=== PATIENT | female | born 1955 | race Caucasian/White ===

== ENCOUNTER 2016-04-27 08:14 | Emergency (ER) | payer OTHER ==
--- NOTE | 2016-04-27 09:59 | ED NURSING NOTES ---
Clinical Report - Nurses [facility] [place] [address] 04/27/2016 8:17 [id number] TRI[facility] Triage time 08:Apr 27 2016. Acuity: LEVEL 5. Chief Complaint: ABDOMINAL PAIN, NAUSEA and VOMITING. 08:31 04/27/16. SEPSIS SCREEN: Sepsis Screen. Negative (no infection suspected/documented). ENZO COMA SCORE: [place] Coma Scale: 15- eyes open spontaneously (4); best verbal response- oriented x 4 (5); best motor response- obeys commands (6). --08:31 Anel Miner R.N. 08:23 04/27/16. BP: 130/80 (regular adult cuff) taken on the left arm, while sitting. HR: 110. RR: 18. O2 saturation: 98% on room air. Temp: 98.5 F (oral). Pain level now: 04/13. --08:31 Anel Miner R.N. Weight: 80.7 kg stated. Height/Length: 64 inches Per Patient. BMI: 30.6. --08:26 Anel Miner R.N. Medications Effexor XR Oral 125. --08:25 Anel Miner R.N. Allergies Bactrim. Erythromycin. Penicillin. --08:25 Anel Miner R.N. History Arrived by private vehicle. Historian: patient. Primary physician (DAVID JOY). This started today. Onset. (Started at 1AM this morning). She has had nausea and vomiting. She has had sharp abdominal pain (Left sided abd pain). The pain is described as located in the LUQ. Treatment ENVIRONMENTAL HEALTH AND SAFETY INTERN: None. SOCIAL HX: Never smoker. Occasional alcohol use; consumes wine by the glass. No drug use. She has had contact with a sick individual. (Niece). ABUSE ASSESSMENT: No report of abuse. --08:31 Anel Miner R.N. PROBLEMS: Diarrhea. Chest Pain. Syncope. Hyperlipidemia. Pulmonary Nodule. Immunizations. Stage 3 renal failure. Depression. Tachycardia. Renal cancer. --08:25 Anel Miner R.N. ADDITIONAL SURGERIES: Hysterectomy. Nephrectomy. Oophorectomy. Rotator Cuff Surgery. --08:25 Anel Miner R.N. Interventions ID band on patient. To treatment room. --08:31 Anel Miner R.N. PHYSICAL ASSESSMENT 08:31 04/27/16. Ambulatory to room. GENERAL / NEURO / PSYCH: Alert. Oriented X 4. Appears in no acute distress. RESPIRATORY: Respirations not labored. CVS: Capillary refill less than 2 seconds. GI / : Bowel sounds within normal limits. SKIN: Skin is warm. --08:31 Anel Miner R.N. NURSING PROGRESS NOTES 08:32 04/27/16. Head of bed elevated. Reassurance given. Two patient identifiers checked. Call light placed in reach. Side rails up x 1. Bed placed in lowest position. Brakes of bed on. Patient ready for evaluation- chart flagged and ED physician notified. --08:32 Anel Miner R.N. 08:45 04/27/2016 Site #1 started via IV in the right antecubital space with an 20g angiocath; one attempt. Blood drawn: rainbow set. Saline lock flushed with 10 mL saline. --08:50 Anel Miner R.N. 08:45 04/27/2016 Started bag #1 1000 mL IV Fluids IV NS (Saline); at 1000 mL/hr over 1 hour(s) via site #1 via dial-a-flow. Allergies verified and confirmed 5 rights. IV patency established. IV site checked: no pain, redness, or swelling. IV flushed thoroughly pre- and post-medication administration. --08:50 Anel Miner R.N. 08:58 04/27/2016 Zofran (Ondansetron HCl) IVP 4 mg given over 1 minute(s) via site #1. Allergies verified and confirmed 5 rights. IV patency established. IV site checked: no pain, redness, or swelling. IV flushed thoroughly pre- and post-medication administration. IVP given by RN. --08:58 Anel Miner R.N. 09:21 04/27/2016 Zofran IVP Response: no adverse reaction pain is improving. Symptoms have improved the patient feels better. --09:21 Anel Miner R.N. ( Pt reports she feels better on Zofran, Ready to go home.). --09:32 Graciela Huffman. DISPOSITION / DISCHARGE 10:08 04/27/2016 Site #1 removed upon discharge. Bandaid applied. --10:08 Anel Miner R.N. 10:07 04/27/16. BP: 141/90. HR: 72 (regular). RR: 16 (regular). O2 saturation: 100% on room air. Temp: 98.4 F (oral). Pain level now: 04/13. --10:12 Anel Miner R.N. 10:11 04/27/2016 IV Fluids IV NS Discontinued: bag #1 completed upon discharge. Total amount infused: 1000 mL. IV patency established. IV site checked: no pain, redness, or swelling. IV flushed thoroughly. --10:21 Anel Miner R.N. 10:12 04/27/16. Departure time: 10:12 Apr 27 2016. Condition at departure: improved. No learning barriers present. Discharge instructions provided and reviewed with the patient. Reviewed medication(s) side effects and precautions information. Prescription(s) given to the patient. Work note given. Patient verbalized understanding. Written instructions provided in Pal[place]. The patient was discharged by the physician. She was discharged home. She left the Emergency Department ambulatory and via private vehicle. Patient driving. --10:12 Anel Miner R.N. Locked/Released at 05/01/2016 8:56 by Marely Sahni R.N.
--- NOTE | 2016-04-27 09:59 | ED NURSING NOTES ---
Clinical Report - Nurses [facility] [place] [address] 04/27/2016 8:17 [id number] TRI[facility] Triage time 08:Apr 27 2016. Acuity: LEVEL 5. Chief Complaint: ABDOMINAL PAIN, NAUSEA and VOMITING. 08:31 04/27/16. SEPSIS SCREEN: Sepsis Screen. Negative (no infection suspected/documented). ENZO COMA SCORE: [place] Coma Scale: 15- eyes open spontaneously (4); best verbal response- oriented x 4 (5); best motor response- obeys commands (6). --08:31 Anel Miner R.N. 08:23 04/27/16. BP: 130/80 (regular adult cuff) taken on the left arm, while sitting. HR: 110. RR: 18. O2 saturation: 98% on room air. Temp: 98.5 F (oral). Pain level now: 04/13. --08:31 Anel Miner R.N. Weight: 80.7 kg stated. Height/Length: 64 inches Per Patient. BMI: 30.6. --08:26 Anel Miner R.N. Medications Effexor XR Oral 125. --08:25 Anel Miner R.N. Allergies Bactrim. Erythromycin. Penicillin. --08:25 Anel Miner R.N. History Arrived by private vehicle. Historian: patient. Primary physician (DAVID JOY). This started today. Onset. (Started at 1AM this morning). She has had nausea and vomiting. She has had sharp abdominal pain (Left sided abd pain). The pain is described as located in the LUQ. Treatment DIRECTOR COUNSELING BUREAU: None. SOCIAL HX: Never smoker. Occasional alcohol use; consumes wine by the glass. No drug use. She has had contact with a sick individual. (Niece). ABUSE ASSESSMENT: No report of abuse. --08:31 Anel Miner R.N. PROBLEMS: Diarrhea. Chest Pain. Syncope. Hyperlipidemia. Pulmonary Nodule. Immunizations. Stage 3 renal failure. Depression. Tachycardia. Renal cancer. --08:25 Anel Miner R.N. ADDITIONAL SURGERIES: Hysterectomy. Nephrectomy. Oophorectomy. Rotator Cuff Surgery. --08:25 Anel Miner R.N. Interventions ID band on patient. To treatment room. --08:31 Anel Miner R.N. PHYSICAL ASSESSMENT 08:31 04/27/16. Ambulatory to room. GENERAL / NEURO / PSYCH: Alert. Oriented X 4. Appears in no acute distress. RESPIRATORY: Respirations not labored. CVS: Capillary refill less than 2 seconds. GI / : Bowel sounds within normal limits. SKIN: Skin is warm. --08:31 Anel Miner R.N. NURSING PROGRESS NOTES 08:32 04/27/16. Head of bed elevated. Reassurance given. Two patient identifiers checked. Call light placed in reach. Side rails up x 1. Bed placed in lowest position. Brakes of bed on. Patient ready for evaluation- chart flagged and ED physician notified. --08:32 Anel Miner R.N. 08:45 04/27/2016 Site #1 started via IV in the right antecubital space with an 20g angiocath; one attempt. Blood drawn: rainbow set. Saline lock flushed with 10 mL saline. --08:50 Anel Miner R.N. 08:45 04/27/2016 Started bag #1 1000 mL IV Fluids IV NS (Saline); at 1000 mL/hr over 1 hour(s) via site #1 via dial-a-flow. Allergies verified and confirmed 5 rights. IV patency established. IV site checked: no pain, redness, or swelling. IV flushed thoroughly pre- and post-medication administration. --08:50 Anel Miner R.N. 08:58 04/27/2016 Zofran (Ondansetron HCl) IVP 4 mg given over 1 minute(s) via site #1. Allergies verified and confirmed 5 rights. IV patency established. IV site checked: no pain, redness, or swelling. IV flushed thoroughly pre- and post-medication administration. IVP given by RN. --08:58 Anel Miner R.N. 09:21 04/27/2016 Zofran IVP Response: no adverse reaction pain is improving. Symptoms have improved the patient feels better. --09:21 Anel Miner R.N. ( Pt reports she feels better on Zofran, Ready to go home.). --09:32 Graciela Huffman. DISPOSITION / DISCHARGE 10:08 04/27/2016 Site #1 removed upon discharge. Bandaid applied. --10:08 Anel Miner R.N. 10:07 04/27/16. BP: 141/90. HR: 72 (regular). RR: 16 (regular). O2 saturation: 100% on room air. Temp: 98.4 F (oral). Pain level now: 04/13. --10:12 Anel Miner R.N. 10:11 04/27/2016 IV Fluids IV NS Discontinued: bag #1 completed upon discharge. Total amount infused: 1000 mL. IV patency established. IV site checked: no pain, redness, or swelling. IV flushed thoroughly. --10:21 Anel Miner R.N. 10:12 04/27/16. Departure time: 10:12 Apr 27 2016. Condition at departure: improved. No learning barriers present. Discharge instructions provided and reviewed with the patient. Reviewed medication(s) side effects and precautions information. Prescription(s) given to the patient. Work note given. Patient verbalized understanding. Written instructions provided in [place]ak. The patient was discharged by the physician. She was discharged home. She left the Emergency Department ambulatory and via private vehicle. Patient driving. --10:12 Anel Miner R.N. Locked/Released at 05/01/2016 8:56 by Marely Sahni R.N.
--- NOTE | 2016-04-27 09:59 | ED CLINICAL REPORT ---
Clinical Report - Physicians/Mid Levels [facility] [address] [place] [address] 04/27/2016 8:17 Patient: NEGRITA PERALTA Time Seen: 08:36. Arrived- By private vehicle. Historian- patient. CPT: ER phys charges level 4 (#[id number]). HISTORY OF PRESENT ILLNESS Chief Complaint: VOMITING. This started today at about 1:30 AM and is still present. It was abrupt in onset and has been intermittent and waxing/waning. No recent travel. She has had nausea, vomiting and mild, sharp abdominal pain. The pain is described as located in the LUQ. No diarrhea, black stools or bloody stools. Has not recently been camping or on antibiotics. Possible bad food exposure. She has had contact with a sick family member. (her niece had similar symptoms 3 days ago). They have had similar symptoms. Last bowel movement: yesterday. The illness is described as moderate. Similar symptoms previously: None. Recent medical care: Not recently seen/assessed. REVIEW OF SYSTEMS No cough, skin rash, jaundice, chills or fever. No sore throat, calf pain, chest pain, cough or difficulty breathing. No pedal edema, black stools, bloody stools, urinary problems or back pain. No dizziness, fainting episodes, weakness, diabetic symptoms or easy bruising. No difficulty with urination. The patient has experienced sweats and had palpitations. No difficulty walking. All systems otherwise negative, except as recorded above. PAST HISTORY PCP Mehrdad Cote. Problems: Diverticulitis. Sick Contact. Diarrhea. Chest Pain. Syncope. Hyperlipidemia. Pulmonary Nodule. Stage 3 renal failure. Depression. Tachycardia. Renal cancer. Additional Surgeries: Hysterectomy. Nephrectomy. Oophorectomy. Rotator Cuff Surgery. Medications: Effexor XR Oral 125. Allergies: Bactrim. CONTRAST DYE. Erythromycin. Penicillin. SOCIAL HISTORY Never smoker. Occasional alcohol use. No drug use. Residence: [place]. FAMILY HISTORY Diabetes in first-degree relative (father); hypertension in first-degree relative (father); premature onset heart disease in first-degree relative (father); cancer in first-degree relative (father). ADDITIONAL NOTES The nursing notes have been reviewed. PHYSICAL EXAM Vital Signs: 04/27/2016 08:23 BP: 130/80. HR: 110. RR: 18. O2 saturation: 98%. Temp: 98.5 F. Pain level now: 04/13. Have been reviewed. Appearance: Alert. Eyes: Pupils equal, round and reactive to light. ENT: Pharynx normal. Neck: Normal inspection. Neck supple. CVS: Tachycardia. Heart sounds normal. Respiratory: No respiratory distress. Breath sounds normal. Abdomen: Soft. Tenderness in the left upper quadrant and left side of the abdomen. Abnormal bowel sounds: hyperactive. Back: Normal inspection. No CVA tenderness. Skin: Skin warm and dry. Normal skin color. Normal skin turgor. Extremities: Extremities exhibit normal ROM. No calf tenderness. No lower extremity edema. Neuro: Oriented X 3. No motor deficit. No sensory deficit. Reflexes normal. LABS, X-RAYS, AND EKG Laboratory Tests: UA-Culture if indicated: (SANKET: 04/27/2016 08:50) ( [facility] [place] 09:19) Final results Test Result Flag Units (Reference) URINE COLOR YELLOW URINE APPEARANCE CLEAR URINE GLUCOSE NEGATIVE (NEGATIVE) URINE BILIRUBIN NEGATIVE (NEGATIVE) URINE KETONE NEGATIVE (NEGATIVE) URINE SPECIFIC GRAVITY <= 1.005 L (1.010-1.030) URINE PH 5.0 (5.0-8.0) URINE PROTEIN NEGATIVE (NEGATIVE) URINE UROBILINOGEN 0.2 EU/dL (0.2-1.0) URINE NITRITE NEGATIVE (NEGATIVE) URINE BLOOD NEGATIVE (NEGATIVE) URINE LEUK ESTERASE NEGATIVE (NEGATIVE) URINE RBC NONE SEEN rbc/hpf (0-1) URINE WBC NONE SEEN wbc/hpf (0-1) URINE EPITHELIAL CELLS 0-1 EPI/hpf (0-5) URINE BACTERIA NONE SEEN (NONE SEEN) URINE COMMENT CULT NOT INDICATED URINE CULTURES ARE SET-UP BASED ON THE FOLLOWING CRITERIA:POSITIVE NITRITEPOSITIVE LEUKOCYTE ESTERASEGREATER THAN 10 WHITE BLOOD CELLSMODERATE (2+) OR GREATER BACTERIA CBC w Diff: (SANKET: 04/27/2016 08:50) ( [facility] [place] 04/27/2016 09:12) Final results Test Result Flag Units (Reference) WHITE BLOOD COUNT 7.4 K/uL (4.5-11.5) RED BLOOD COUNT 5.06 M/uL (4.00-5.20) HEMOGLOBIN 15.8 gm/dL (12.0-16.0) HEMATOCRIT 47.1 H % (36.0-46.0) MEAN CELL VOLUME 93 fL (80-100) MEAN CORPUSCULAR HGB 31 pg (26-34) MEAN CORPUSCULAR HGB CONC 34 g/dL (31-37) RED CELL DISTRIBUTION WIDTH 12.9 % (11.6-14.8) PLATELET COUNT 384 K/uL (150-400) NEUTROPHIL % 79.7 H % (50-75) LYMPH % 12.8 L % (25-40) MONO % 6.1 % (3-14) EOSINOPHIL % 0.9 % (0-4) BASOPHIL % 0.5 % (0-2) CMP: (SANKET: 04/27/2016 08:50) ( MsgRcvd 04/27/2016 09:29) Final results Test Result Flag Units (Reference) GLUCOSE 162 H mg/dL (70-110) BUN 37 H mg/dL (7-18) CREATININE 1.1 mg/dL (0.6-1.3) Estimated GFR 54.03 mL/min Estimated GFR- >60 mL/min Note: Persistent reduction over 3 months in eGFR<60 mL/min/1.73 m2 defines CKD. Patients with eGFR values>=60 mL/min/1.73 m2 may also have CKD if evidence ofpersistent proteinuria. Additional information may be foundat www.kidney.org. SODIUM 141 mmol/L (136-145) POTASSIUM 4.0 mmol/L (3.5-5.1) CHLORIDE 104 mmol/L (98-107) CARBON DIOXIDE 24 mmol/L (21-32) CALCIUM 9.4 mg/dL (8.5-10.1) TOTAL PROTEIN 8.2 g/dL (6.4-8.2) ALBUMIN 3.8 g/dL (3.3-5.0) BILIRUBIN, TOTAL 0.4 mg/dL (0.0-1.0) ALKALINE PHOSPHATASE 102 U/L (46-116) AST (SGOT) 21 U/L (15-37) ALT (SGPT) 39 U/L (12-78) LIPASE 237 U/L (73-393) AMYLASE 45 U/L (25-115) . PROGRESS AND PROCEDURES Course of Care: IV NS 1 liter Zofran 4 mg IV Patient is stable. Physical exam findings are improved. Symptoms much better. Patient/family counseled. Disposition: Discharged. Condition: stable and improved. CLINICAL IMPRESSION Acute viral gastroenteritis. Pre-renal azotemia. INSTRUCTIONS No strenuous activity. Rest. Do not work for two days until better. Take clear liquids only (frequent sips) for the next 24 hours until better. Advance diet as tolerated. Warnings: Further evaluation is necessary. GENERAL WARNINGS: Return or contact your physician immediately if your condition worsens or changes unexpectedly, if not improving as expected, or if other problems arise. Your Current Medications: CONTINUE TAKING THE FOLLOWING MEDICATIONS: Effexor XR Oral : 125. Prescription Medications: Zofran (orally disintegrating tablets) 4 mg: take 1 orally every 4 hours as needed for nausea. Dispense fifteen (15). No refill. Substitution is permissible. Follow-up: Follow up with your doctor in three days if not better. Understanding of the discharge instructions verbalized by patient. (Electronically signed by Arnoldo Hull MD 04/27/2016 13:20)
--- NOTE | 2016-04-27 09:59 | ED CLINICAL REPORT ---
Clinical Report - Physicians/Mid Levels [facility] [address] [place] [address] 04/27/2016 8:17 Patient: NEGRITA PERALTA Time Seen: 08:36. Arrived- By private vehicle. Historian- patient. CPT: ER phys charges level 4 (#[id number]). HISTORY OF PRESENT ILLNESS Chief Complaint: VOMITING. This started today at about 1:30 AM and is still present. It was abrupt in onset and has been intermittent and waxing/waning. No recent travel. She has had nausea, vomiting and mild, sharp abdominal pain. The pain is described as located in the LUQ. No diarrhea, black stools or bloody stools. Has not recently been camping or on antibiotics. Possible bad food exposure. She has had contact with a sick family member. (her niece had similar symptoms 3 days ago). They have had similar symptoms. Last bowel movement: yesterday. The illness is described as moderate. Similar symptoms previously: None. Recent medical care: Not recently seen/assessed. REVIEW OF SYSTEMS No cough, skin rash, jaundice, chills or fever. No sore throat, calf pain, chest pain, cough or difficulty breathing. No pedal edema, black stools, bloody stools, urinary problems or back pain. No dizziness, fainting episodes, weakness, diabetic symptoms or easy bruising. No difficulty with urination. The patient has experienced sweats and had palpitations. No difficulty walking. All systems otherwise negative, except as recorded above. PAST HISTORY PCP Mehrdad Cote. Problems: Diverticulitis. Sick Contact. Diarrhea. Chest Pain. Syncope. Hyperlipidemia. Pulmonary Nodule. Stage 3 renal failure. Depression. Tachycardia. Renal cancer. Additional Surgeries: Hysterectomy. Nephrectomy. Oophorectomy. Rotator Cuff Surgery. Medications: Effexor XR Oral 125. Allergies: Bactrim. CONTRAST DYE. Erythromycin. Penicillin. SOCIAL HISTORY Never smoker. Occasional alcohol use. No drug use. Residence: [place]. FAMILY HISTORY Diabetes in first-degree relative (father); hypertension in first-degree relative (father); premature onset heart disease in first-degree relative (father); cancer in first-degree relative (father). ADDITIONAL NOTES The nursing notes have been reviewed. PHYSICAL EXAM Vital Signs: 04/27/2016 08:23 BP: 130/80. HR: 110. RR: 18. O2 saturation: 98%. Temp: 98.5 F. Pain level now: 04/13. Have been reviewed. Appearance: Alert. Eyes: Pupils equal, round and reactive to light. ENT: Pharynx normal. Neck: Normal inspection. Neck supple. CVS: Tachycardia. Heart sounds normal. Respiratory: No respiratory distress. Breath sounds normal. Abdomen: Soft. Tenderness in the left upper quadrant and left side of the abdomen. Abnormal bowel sounds: hyperactive. Back: Normal inspection. No CVA tenderness. Skin: Skin warm and dry. Normal skin color. Normal skin turgor. Extremities: Extremities exhibit normal ROM. No calf tenderness. No lower extremity edema. Neuro: Oriented X 3. No motor deficit. No sensory deficit. Reflexes normal. LABS, X-RAYS, AND EKG Laboratory Tests: UA-Culture if indicated: (SANKET: 04/27/2016 08:50) ( [facility] Final results Test Result Flag Units (Reference) URINE COLOR YELLOW URINE APPEARANCE CLEAR URINE GLUCOSE NEGATIVE (NEGATIVE) URINE BILIRUBIN NEGATIVE (NEGATIVE) URINE KETONE NEGATIVE (NEGATIVE) URINE SPECIFIC GRAVITY <= 1.005 L (1.010-1.030) URINE PH 5.0 (5.0-8.0) URINE PROTEIN NEGATIVE (NEGATIVE) URINE UROBILINOGEN 0.2 EU/dL (0.2-1.0) URINE NITRITE NEGATIVE (NEGATIVE) URINE BLOOD NEGATIVE (NEGATIVE) URINE LEUK ESTERASE NEGATIVE (NEGATIVE) URINE RBC NONE SEEN rbc/hpf (0-1) URINE WBC NONE SEEN wbc/hpf (0-1) URINE EPITHELIAL CELLS 0-1 EPI/hpf (0-5) URINE BACTERIA NONE SEEN (NONE SEEN) URINE COMMENT CULT NOT INDICATED URINE CULTURES ARE SET-UP BASED ON THE FOLLOWING CRITERIA:POSITIVE NITRITEPOSITIVE LEUKOCYTE ESTERASEGREATER THAN 10 WHITE BLOOD CELLSMODERATE (2+) OR GREATER BACTERIA CBC w Diff: (SANKET: 04/27/2016 08:50) ( [facility] [place] 09:12) Final results Test Result Flag Units (Reference) WHITE BLOOD COUNT 7.4 K/uL (4.5-11.5) RED BLOOD COUNT 5.06 M/uL (4.00-5.20) HEMOGLOBIN 15.8 gm/dL (12.0-16.0) HEMATOCRIT 47.1 H % (36.0-46.0) MEAN CELL VOLUME 93 fL (80-100) MEAN CORPUSCULAR HGB 31 pg (26-34) MEAN CORPUSCULAR HGB CONC 34 g/dL (31-37) RED CELL DISTRIBUTION WIDTH 12.9 % (11.6-14.8) PLATELET COUNT 384 K/uL (150-400) NEUTROPHIL % 79.7 H % (50-75) LYMPH % 12.8 L % (25-40) MONO % 6.1 % (3-14) EOSINOPHIL % 0.9 % (0-4) BASOPHIL % 0.5 % (0-2) CMP: (SANKET: 04/27/2016 08:50) ( MsgRcvd 04/27/2016 09:29) Final results Test Result Flag Units (Reference) GLUCOSE 162 H mg/dL (70-110) BUN 37 H mg/dL (7-18) CREATININE 1.1 mg/dL (0.6-1.3) Estimated GFR 54.03 mL/min Estimated GFR- >60 mL/min Note: Persistent reduction over 3 months in eGFR<60 mL/min/1.73 m2 defines CKD. Patients with eGFR values>=60 mL/min/1.73 m2 may also have CKD if evidence ofpersistent proteinuria. Additional information may be foundat www.kidney.org. SODIUM 141 mmol/L (136-145) POTASSIUM 4.0 mmol/L (3.5-5.1) CHLORIDE 104 mmol/L (98-107) CARBON DIOXIDE 24 mmol/L (21-32) CALCIUM 9.4 mg/dL (8.5-10.1) TOTAL PROTEIN 8.2 g/dL (6.4-8.2) ALBUMIN 3.8 g/dL (3.3-5.0) BILIRUBIN, TOTAL 0.4 mg/dL (0.0-1.0) ALKALINE PHOSPHATASE 102 U/L (46-116) AST (SGOT) 21 U/L (15-37) ALT (SGPT) 39 U/L (12-78) LIPASE 237 U/L (73-393) AMYLASE 45 U/L (25-115) . PROGRESS AND PROCEDURES Course of Care: IV NS 1 liter Zofran 4 mg IV Patient is stable. Physical exam findings are improved. Symptoms much better. Patient/family counseled. Disposition: Discharged. Condition: stable and improved. CLINICAL IMPRESSION Acute viral gastroenteritis. Pre-renal azotemia. INSTRUCTIONS No strenuous activity. Rest. Do not work for two days until better. Take clear liquids only (frequent sips) for the next 24 hours until better. Advance diet as tolerated. Warnings: Further evaluation is necessary. GENERAL WARNINGS: Return or contact your physician immediately if your condition worsens or changes unexpectedly, if not improving as expected, or if other problems arise. Your Current Medications: CONTINUE TAKING THE FOLLOWING MEDICATIONS: Effexor XR Oral : 125. Prescription Medications: Zofran (orally disintegrating tablets) 4 mg: take 1 orally every 4 hours as needed for nausea. Dispense fifteen (15). No refill. Substitution is permissible. Follow-up: Follow up with your doctor in three days if not better. Understanding of the discharge instructions verbalized by patient. (Electronically signed by Anroldo Hull MD 04/27/2016 13:20)
--- NOTE | 2016-04-27 09:59 | ED ORDER SUMMARY ---
..... Patient: NEGRITA PERALTA OrderSheet [facility] VisitID: [id number] [address] [place] [address] 60y, F Registration Date/Time: 04/27/2016 ORDER SHEET Weight: 80.7 kg (stated) Allergies: Bactrim, Erythromycin, Penicillin, CONTRAST DYE GENERAL ORDERS: CBC w Diff Urgent (08:35 04/27/2016 Stefany HARTMAN) (Ack 8:43 RKaruga) (8:50 JSanders R.N.) CMP Urgent (08:35 04/27/2016 Stefany HARTMAN) (Ack 8:43 Steffany) (8:50 JSanders R.N.) UA-Culture if indicated Urgent (08:04/27/2016 Stefany HARTMAN) (Ack 8:43 RKreed) (8:58 JSanders R.N.) Amylase Urgent (08:04/27/2016 Stefany HARTMAN) (Ack 8:43 RKstormyuga) (8:50 JSanders R.N.) Lipase Urgent (08:35 04/27/2016 Stefany HARTMAN) (Ack 8:43 [place]) (8:50 JSanders R.N.) MEDICATION ORDERS: IV FLUIDS: IV NS : initial bolus 500 mL (1000 mL/hr), then 125 mL/hr for 4h (NOW); Urgent (08:34 04/27/2016 Stefany HARTMAN) (8:50 JSanders R.N.) Zofran IV 4 mg (NOW) (08:51 04/27/2016 JSanders R.N. verbal order read back to Stefany HARTMAN) (8:58 JSanders R.N.) ORDER SHEET NOTES: [Electronically signed by Arnoldo Hull MD (13:20 04/27/2016)] [Electronically signed by Marely Sahni R.N. (08:56 05/01/2016)] [Electronically locked/signed by Marely Sahni R.N. (08:56 05/01/2016)]
--- NOTE | 2016-04-27 09:59 | ED ORDER SUMMARY ---
..... Patient: NEGRITA PERALTA OrderSheet [facility] VisitID: [id number] [address] [place] [address] 60y, F Registration Date/Time: 04/27/2016 ORDER SHEET Weight: 80.7 kg (stated) Allergies: Bactrim, Erythromycin, Penicillin, CONTRAST DYE GENERAL ORDERS: CBC w Diff Urgent (08:35 04/27/2016 Stefany HARTMAN) (Ack 8:43 RKaruga) (8:50 JSanders R.N.) CMP Urgent (08:35 04/27/2016 Stefany HARTMAN) (Ack 8:43 Steffany) (8:50 JSanders R.N.) UA-Culture if indicated Urgent (08:04/27/2016 Stefany HARTMAN) (Ack 8:43 RKreed) (8:58 JSanders R.N.) Amylase Urgent (08:04/27/2016 Stefany HARTMAN) (Ack 8:43 RKstormyuga) (8:50 JSanders R.N.) Lipase Urgent (08:35 04/27/2016 Stefany HARTMAN) (Ack 8:43 [place]) (8:50 JSanders R.N.) MEDICATION ORDERS: IV FLUIDS: IV NS : initial bolus 500 mL (1000 mL/hr), then 125 mL/hr for 4h (NOW); Urgent (08:34 04/27/2016 Stefany HARTMAN) (8:50 JSanders R.N.) Zofran IV 4 mg (NOW) (08:51 04/27/2016 JSanders R.N. verbal order read back to Stefany HARTMAN) (8:58 JSanders R.N.) ORDER SHEET NOTES: [Electronically signed by Arnoldo Hull MD (13:20 04/27/2016)] [Electronically signed by Marely Sahni R.N. (08:56 05/01/2016)] [Electronically locked/signed by Marely Sahni R.N. (08:56 05/01/2016)]
--- NOTE | 2016-05-01 08:56 | ED MED RECONCILIATION SUMMARY ---
Patient: NEGRITA PERALTA Medication Reconciliation Report [facility] VisitID: [id number] [address] [place] [address] 60y, F Registration Date/Time: 04/27/2016 Weight: 80.7 kg Height/Length: 64 in. BMI: 30.6 ALLERGIES: Bactrim, CONTRAST DYE, Erythromycin, Penicillin The patient's Home Medications are listed below: CONTINUE TAKING THE FOLLOWING MEDICATIONS: Effexor XR Oral 125 The source(s) of the original Home Medication information: Not obtained. The following Medications were given to the patient in the Emergency Department: IV NS IV Fluids bolus 0, then 1000 mL/hr, administered: 04/27/2016 8:45:00 AM Zofran [IVP] IVP 4 mg, administered: 04/27/2016 8:58:00 AM The following Medications were prescribed to the patient: Zofran (orally disintegrating tablets) 4 mg: take 1 orally every 4 hours as needed for nausea. Dispense fifteen (15). No refill. Substitution is permissible. -- Arnoldo Hull MD
--- NOTE | 2016-05-01 08:56 | ED MAR SUMMARY ---
..... Medication Administration Record [facility] [address] [place] [address] Patient: NEGRITA PERALTA Visit ID: [id number] 60y, F Weight: 80.7 kg Height/Length: 64 in BMI: 30.6 ALLERGIES: Bactrim, Erythromycin, Penicillin, CONTRAST DYE Start 08:45 04/27/2016 Anel Miner R.N., Stop 10:11 04/27/2016 Anel Miner R.N. Medication Administered: IV NS (SALINE), Dose: IV Fluids over 1 hour(s), Rate: 1000 mL/hr, Dispensed: 1000 mL bag, Site: #1 right AC. Medication Ordered: IV NS : initial bolus 500 mL (1000 mL/hr), then 125 mL/hr for 4h (NOW); Urgent. Given 08:58 04/27/2016 Anel Miner R.N. Medication Administered: ZOFRAN [IVP] (ONDANSETRON HCL), Dose: 4 mg IVP over 1 minute(s), Site: #1 right AC. Medication Ordered: Zofran IV 4 mg (NOW).
--- NOTE | 2016-05-01 08:56 | ED DISCHARGE INSTRUCTIONS ---
Patient: NEGRITA PERALTA General Instructions [facility] VisitID: [id number] [place] [address] 60y, F Registration Date/Time: 04/27/2016 Acute viral gastroenteritis. Pre-renal azotemia. INSTRUCTIONS No strenuous activity. Rest. Do not work for two days until better. Take clear liquids only (frequent sips) for the next 24 hours until better. Advance diet as tolerated. Warnings: Further evaluation is necessary. GENERAL WARNINGS: Return or contact your physician immediately if your condition worsens or changes unexpectedly, if not improving as expected, or if other problems arise. Your Current Medications: CONTINUE TAKING THE FOLLOWING MEDICATIONS: Effexor XR Oral : 125. Prescription Medications: Zofran (orally disintegrating tablets) 4 mg: take 1 orally every 4 hours as needed for nausea. Dispense fifteen (15). No refill. Substitution is permissible. Follow-up: Follow up with your doctor in three days if not better. Understanding of the discharge instructions verbalized by patient. ADDITIONAL INFORMATION Viral Gastroenteritis (6Yr-Adult) Gastroenteritis is another name for thestomach flu.It is most often caused by a virus that affects the stomach and intestinal tract. Symptoms include stomach cramping and fever, vomiting and/or diarrhea, and can last from 2 to 7 days. The danger from repeated vomiting or diarrhea is dehydration. This is the loss of too much water and minerals from the body. When this occurs, body fluids must be replaced. Antibiotics are not effective for this illness, but simple home treatment will be helpful. Home Care If symptoms are severe, rest at home for the next 24 hours. Avoid tobacco, caffeine, and alcohol use, which can worsen symptoms. Acetaminophen (Tylenol) or ibuprofen (Motrin, Advil) may be usedfor fever or pain unless another medication was prescribed. NOTE: If you have chronic liver or kidney disease or ever had a stomach ulcer or GI bleeding, talk with your doctor before using these medicines. Aspirin should never be used in anyone under 18 years of age who is ill with a fever. It may cause severe liver damage. If medicines for diarrhea or vomiting were prescribed, be sure they are takenonly as directed. If vomiting, drink small amounts of clear fluids (such as water, sports drinks, clear sodas) at frequent intervals to prevent dehydration. Start with 1 to 2 tablespoons every 10 minutes. Once vomiting stops, follow these guidelines: During The First 12 To 24 Hours follow the diet below: Beverages: Sport drinks like Gatorade, soft drinks without caffeine; sully gamaliel, mineral water (plain or flavored), decaffeinated tea and coffee. Soups: Clear broth, consomm and bouillon Desserts: Plain gelatin (Jell-O), Popsicles and fruit juice bars. During The Next 24 Hours you may add the following to the above: Hot cereal, plain toast, bread, rolls, crackers Plain noodles, rice, mashed potatoes, chicken noodle or rice soup Unsweetened canned fruit (avoid pineapple), bananas Limit fat intake to less than 15 grams per day by avoiding margarine, butter, oils, mayonnaise, sauces, gravies, fried foods, peanut butter, meat, poultry, and fish. Limit fiber; avoid raw or cooked vegetables, fresh fruits (except bananas), and bran cereals. Limit caffeine and chocolate. Do not use spices or seasonings except salt. During The Next 24 Hours The patient can gradually resume a normal diet as symptoms lessen. Preventing Spread Hand washing with soap and water is the best way to prevent the spread of viruses. Caregivers should wash their hands before andafter touching the sick person. The sick person, as well as everyone in the family,should wash their hands after using the toilet and before meals. Clean the toilet after each use. People with diarrhea should not prepare food for others. If you are preparing your own foods, wash your hands before and after. Follow Up with your doctor as advised. Call your doctor if you are not improving over the next 2 to 3 days. If a stool (diarrhea) sample was taken, you may call in 2 days (or as directed) for the results. Get Prompt Medical Attention if any of the following occur: Increasing abdominal pain Continued vomiting (unable to keep liquids down) Frequent diarrhea (more than 5 times a day) Blood in vomit or stool (black or red color) Dark urine, reduced urine output, or extreme thirst Weakness, dizziness, fainting Drowsiness, confusion, stiff neck, or seizure Fever of 100.4F (38C) oral or higher, not better with fever medication New rash Food Poisoning Or Viral Gastroenteritis (6Yr-Adult) You have a stomach illness that is likely either food poisoning or viral gastroenteritis. Food poisoning occurs from1 to 24 hours after eating contaminated food and lasts up to 1 to 2 days. Viral gastroenteritis is commonly known as the stomach flu. It may last up to a week. Symptoms of both illnesses may include vomiting, diarrhea, fever, and stomach cramping. Antibiotics are not an effective treatment for either problem, but simple home treatment can give relief. Home Care: If symptoms are severe, rest at home for the next 24 hours. You may use acetaminophen (Tylenol) or ibuprofen (Motrin, Advil) to control fever, unless another medication was prescribed. [NOTE: If you have chronic liver or kidney disease or ever had a stomach ulcer or GI bleeding, talk with your doctor before using these medications. Do not give aspirin to anyone under 18 years of age who is ill with a fever.] Avoid tobacco and alcohol consumption. These may worsen your symptoms. If medicines for diarrhea or vomiting were prescribed, take these only as directed. Never take these without a healthcare providers approval. During the first12 to 24hours follow the diet below: BEVERAGES: Sport drinks like Gatorade, soft drinks without caffeine; sully gamaliel, mineral water (plain or flavored), decaffeinated tea and coffee. SOUPS: Clear broth, consomm and bouillon DESSERTS: Plain gelatin (Jell-O), popsicles and fruit juice bars. During the next 24 hours you may add the following to the above: Hot cereal, plain toast, bread, rolls, crackers Plain noodles, rice, mashed potatoes, chicken noodle or rice soup Unsweetened canned fruit (avoid pineapple), bananas Limit fat intake to less than 15 grams per day by avoiding margarine, butter, oils, mayonnaise, sauces, gravies, fried foods, peanut butter, meat, poultry, and fish. Limit fiber; avoid raw or cooked vegetables, fresh fruits (except bananas) and bran cereals. Limit caffeine and chocolate. No spices or seasonings except salt. Gradually resume a normal diet as you feel better and your symptoms lessen. Follow Up with your doctor as advised if you are not better in 2 days. If a stool (diarrhea) sample was taken, you may call in 2 days (or as directed) for the results. Get Prompt Medical Attention if any of the following occur: Increasing abdominal pain or constant lower right abdominal pain Continued vomiting (unable to keep liquids down) Frequent diarrhea (more than 5 times a day) Blood in vomit or stool (black or red color) Signs of dehydration: increased thirst, dark urine, reduced or no urine output, dry mouth and tongue, tireness or weakness, dizziness when standing, rapid breathinng New rash Fever of 100.4F (38C) oral or higher, not better with fever medication Clear Liquid Diet Clear liquids are any liquid that you can see through as well as those that are very easy to digest. This is used while the body is recovering from irritation or infection of the stomach or intestinal tract. It may also be used before special procedures or surgery. This diet is to be used no more than three days. You may include the following items. Adults Adults should drink a total of 23 quarts of liquid per day. It may be easier to drink small frequent servings rather than a few large ones. Liquids can include: Fruit juices.Strained orange juice or lemonade (no pulp), apple, grape and cranberry juice, clear fruit drinks, sports drinks Beverages.Sport drinks, sodas, mineral water (plain or flavored), tea, black coffee, liquid gelatin (add twice the recommended amount of water) Soups.Clear broth, consomm, bouillon Desserts.Plain gelatin, popsicles, fruit juice bars Children Over 2 years old The following liquids are acceptable for children over age 2: Fruit juices.Strained orange juice or lemonade (no pulp), apple, grape and cranberry juice, clear fruit drinks Beverages. Sports drinks, sodas, mineral water (plain or flavored), tea, liquid gelatin (add twice the recommended amount of water) Soups. Clear broth, consomm, bouillon Desserts. Plain gelatin, popsicles, fruit juice bars Children under 2 years old Oral rehydration fluids such are available at drug stores and most grocery stores without a prescription. Ondansetron Oral disintegrating tablet What is this medicine? ONDANSETRON (on KATHRYN se mame) is used to treat nausea and vomiting caused by chemotherapy. It is also used to prevent or treat nausea and vomiting after surgery. How should I use this medicine? These tablets are made to dissolve in the mouth. Do not try to push the tablet through the foil backing. With dry hands, peel away the foil backing and gently remove the tablet. Place the tablet in the mouth and allow it to dissolve, then swallow. While you may take these tablets with water, it is not necessary to do so. Talk to your research assistant member regarding the use of this medicine in children. Special care may be needed. What side effects may I notice from receiving this medicine? Side effects that you should report to your doctor or health memory care program director as soon as possible: allergic reactions like skin rash, itching or hives, swelling of the face, lips, or tongue breathing problems dizziness fast or irregular heartbeat feeling faint or lightheaded, falls fever and chills swelling of the hands and feet tightness in the chest Side effects that usually do not require medical attention (report to your doctor or health memory care program director if they continue or are bothersome): constipation or diarrhea headache What may interact with this medicine? Do not take this medicine with any of the following medications: -apomorphine -cisapride -dofetilide -dronedarone -pimozide -thioridazine -ziprasidone This medicine may also interact with the following medications: -carbamazepine -phenytoin -rifampicin -tramadol -other medicines that prolong the QT interval (cause an abnormal heart rhythm) What if I miss a dose? If you miss a dose, take it as soon as you can. If it is almost time for your next dose, take only that dose. Do not take double or extra doses. Where should I keep my medicine? Keep out of the reach of children. Store between 2 and 30 degrees C (36 and 86 degrees F). Throw away any unused medicine after the expiration date. What should I tell my health care provider before I take this medicine? They need to know if you have any of these conditions: heart disease history of irregular heartbeat liver disease low levels of magnesium or potassium in the blood an unusual or allergic reaction to ondansetron, granisetron, other medicines, foods, dyes, or preservatives or trying to get breast-feeding What should I watch for while using this medicine? Check with your doctor or health memory care program director as soon as you can if you have any sign of an allergic reaction. You have been given the following additional information: Gastroenteritis, Viral (6Y-Adult) Food Poisoning Or Gastroenteritis (6Y-Adult) Diet, Clear Liquid Ondansetron Oral disintegrating tablet No strenuous activity. Rest. Do not work for two days until better. (Electronically signed by Arnoldo Hull MD 04/27/2016 13:20)
--- NOTE | 2016-05-01 08:56 | ED MAR SUMMARY ---
..... Medication Administration Record [facility] [address] [place] [address] Patient: NEGRITA PERALTA Visit ID: [id number] 60y, F Weight: 80.7 kg Height/Length: 64 in BMI: 30.6 ALLERGIES: Bactrim, Erythromycin, Penicillin, CONTRAST DYE Start 08:45 04/27/2016 Anel Miner R.N., Stop 10:11 04/27/2016 Anel Miner R.N. Medication Administered: IV NS (SALINE), Dose: IV Fluids over 1 hour(s), Rate: 1000 mL/hr, Dispensed: 1000 mL bag, Site: #1 right AC. Medication Ordered: IV NS : initial bolus 500 mL (1000 mL/hr), then 125 mL/hr for 4h (NOW); Urgent. Given 08:58 04/27/2016 Anel Mienr R.N. Medication Administered: ZOFRAN [IVP] (ONDANSETRON HCL), Dose: 4 mg IVP over 1 minute(s), Site: #1 right AC. Medication Ordered: Zofran IV 4 mg (NOW).
--- NOTE | 2016-05-01 08:56 | ED MED RECONCILIATION SUMMARY ---
Patient: NEGRITA PERALTA Medication Reconciliation Report [facility] VisitID: [id number] [address] [place] [address] 60y, F Registration Date/Time: 04/27/2016 Weight: 80.7 kg Height/Length: 64 in. BMI: 30.6 ALLERGIES: Bactrim, CONTRAST DYE, Erythromycin, Penicillin The patient's Home Medications are listed below: CONTINUE TAKING THE FOLLOWING MEDICATIONS: Effexor XR Oral 125 The source(s) of the original Home Medication information: Not obtained. The following Medications were given to the patient in the Emergency Department: IV NS IV Fluids bolus 0, then 1000 mL/hr, administered: 04/27/2016 8:45:00 AM Zofran [IVP] IVP 4 mg, administered: 04/27/2016 8:58:00 AM The following Medications were prescribed to the patient: Zofran (orally disintegrating tablets) 4 mg: take 1 orally every 4 hours as needed for nausea. Dispense fifteen (15). No refill. Substitution is permissible. -- Arnoldo Hull MD
== END 2016-04-27 10:14 | disposition home or self-care (01) ==
LOC: ED SRH 08:14
DX: A08.4 Viral intestinal infection, unspecified (principal); R79.89 Other specified abnormal findings of blood chemistry; Z79.899 Other long term (current) drug therapy; Z88.0 Allergy status to penicillin; Z88.1 Allergy status to other antibiotic agents; Z91.041 Radiographic dye allergy status
CPT/HCPCS: 90004; 90100; 92235; 92530; 95059

== ENCOUNTER 2016-08-19 07:47 | Emergency (ER) | payer OTHER ==
--- NOTE | 2016-08-19 08:26 | ED CLINICAL REPORT ---
Clinical Report - Physicians/Mid Levels [facility] [address] [place] [address] 08/19/2016 7:48 Patient: NEGRITA PERALTA Time Seen: 08:13. Arrived- By private vehicle. Historian- patient. HISTORY OF PRESENT ILLNESS Chief Complaint: EYE IRRITATION. This started last night, involves the left eye, is characterized as moderate in severity and has been constant and is still present. The patient sustained injury. This occurred at home. She wears contact lenses (removing her contact, which she had slept in for about 30 min, she accidently scratched her left eye noting immediate discomfort). No suspected foreign body in eye or UV light exposure. Eye redness and irritation. No eye discharge, eyelid swelling, photophobia or loss of vision. REVIEW OF SYSTEMS No fever, sore throat or cough. PAST HISTORY See nurses notes. The patient wears contact lenses. PCP Mehrdad Cote. Problems: Diverticulitis. Sick Contact. Diarrhea. Chest Pain. Syncope. Hyperlipidemia. Pulmonary Nodule. Stage 3 renal failure. Depression. Tachycardia. Renal cancer. Surgeries: Hysterectomy. Nephrectomy. Oophorectomy. Rotator Cuff Surgery. No history of diabetes mellitus or glaucoma. Anxiety. Depression. Surgeries: Had hysterectomy. Medications: Effexor XR Oral. Allergies: Ambien. Bactrim. CONTRAST DYE. Erythromycin. Penicillin. SOCIAL HISTORY Never smoker. Occasional alcohol use. No drug use. ADDITIONAL NOTES The nursing notes have been reviewed. PHYSICAL EXAM Vital Signs: 08/19/2016 08:26 BP: 149/86. HR: 85. RR: 18. O2 saturation: 100%. Temp: 98.1 F. Appearance: Alert. Oriented X3. HEENT: Head appears normal to external inspection. Eyes: Left cornea examined with fluorescein stain. Eyelids appear normal to inspection. Pupils equal, round and reactive to light. Accommodation normal. EOMs intact. Periorbital areas appear normal to inspection. Anterior chambers clear. Anterior chambers of normal depth. Rt Eye: Right eye exam normal. Lt Eye: Injected conjunctiva. Scleral injury: mild swelling and small abrasion. No stye present. No foreign body under the eyelid. No corneal foreign body or fluorescein dye uptake. Neck: Neck supple. CVS: Normal heart rate and rhythm. Heart sounds normal. Respiratory: No respiratory distress. Breath sounds normal. Skin: No rash. Extremities: Extremities negative. Neuro: Oriented X 3. (normal gait). PROGRESS AND PROCEDURES Course of Care: Most c/w healing corneal and scleral abrasion. No corneal ulcer or penetrating globe injury. Patient/family counseled. Old ED records reviewed. Disposition: Discharged. Condition: stable. CLINICAL IMPRESSION Small corneal abrasion to the left eye due to contact lens (resolving). No foreign body or rust ring. Small scleral laceration of the left eye. No prolapse or loss of intraocular contents. INSTRUCTIONS Do not work today. Drink plenty of fluids. Warnings: Further evaluation is necessary. It is very important to follow up with a physician. CONTROLLED SUBSTANCE WARNINGS. GENERAL WARNINGS: Return or contact your physician immediately if your condition worsens or changes unexpectedly, if not improving as expected, or if other problems arise. Prescription Medications: Hydrocodone/APAP 5mg / 325mg: take 1-2 orally every 8 hours as needed for pain. Dispense ten (10). No refill. Ciprofloxacin ophthalmic solution: Instill 1 drop into affected eye every 2 hours while awake for 2 days then every 4 hours while awake for 5 days. Dispense five (5) mL. No refills. Follow-up with: Santos Madrigal MD, Ophthalmology, , [facility], [address] [place] [address]; Genia Xiong MD, Ophthalmology, [facility] [address] [address] Follow up tomorrow if not better. (Electronically signed by Jorge Deluna DO 08/20/2016 11:34)
--- NOTE | 2016-08-19 08:26 | ED CLINICAL REPORT ---
Clinical Report - Physicians/Mid Levels [facility] [address] [place] [address] 08/19/2016 7:48 Patient: NEGRITA PERALTA Time Seen: 08:13. Arrived- By private vehicle. Historian- patient. HISTORY OF PRESENT ILLNESS Chief Complaint: EYE IRRITATION. This started last night, involves the left eye, is characterized as moderate in severity and has been constant and is still present. The patient sustained injury. This occurred at home. She wears contact lenses (removing her contact, which she had slept in for about 30 min, she accidently scratched her left eye noting immediate discomfort). No suspected foreign body in eye or UV light exposure. Eye redness and irritation. No eye discharge, eyelid swelling, photophobia or loss of vision. REVIEW OF SYSTEMS No fever, sore throat or cough. PAST HISTORY See nurses notes. The patient wears contact lenses. PCP Mehrdad Cote. Problems: Diverticulitis. Sick Contact. Diarrhea. Chest Pain. Syncope. Hyperlipidemia. Pulmonary Nodule. Stage 3 renal failure. Depression. Tachycardia. Renal cancer. Surgeries: Hysterectomy. Nephrectomy. Oophorectomy. Rotator Cuff Surgery. No history of diabetes mellitus or glaucoma. Anxiety. Depression. Surgeries: Had hysterectomy. Medications: Effexor XR Oral. Allergies: Ambien. Bactrim. CONTRAST DYE. Erythromycin. Penicillin. SOCIAL HISTORY Never smoker. Occasional alcohol use. No drug use. ADDITIONAL NOTES The nursing notes have been reviewed. PHYSICAL EXAM Vital Signs: 08/19/2016 08:26 BP: 149/86. HR: 85. RR: 18. O2 saturation: 100%. Temp: 98.1 F. Appearance: Alert. Oriented X3. HEENT: Head appears normal to external inspection. Eyes: Left cornea examined with fluorescein stain. Eyelids appear normal to inspection. Pupils equal, round and reactive to light. Accommodation normal. EOMs intact. Periorbital areas appear normal to inspection. Anterior chambers clear. Anterior chambers of normal depth. Rt Eye: Right eye exam normal. Lt Eye: Injected conjunctiva. Scleral injury: mild swelling and small abrasion. No stye present. No foreign body under the eyelid. No corneal foreign body or fluorescein dye uptake. Neck: Neck supple. CVS: Normal heart rate and rhythm. Heart sounds normal. Respiratory: No respiratory distress. Breath sounds normal. Skin: No rash. Extremities: Extremities negative. Neuro: Oriented X 3. (normal gait). PROGRESS AND PROCEDURES Course of Care: Most c/w healing corneal and scleral abrasion. No corneal ulcer or penetrating globe injury. Patient/family counseled. Old ED records reviewed. Disposition: Discharged. Condition: stable. CLINICAL IMPRESSION Small corneal abrasion to the left eye due to contact lens (resolving). No foreign body or rust ring. Small scleral laceration of the left eye. No prolapse or loss of intraocular contents. INSTRUCTIONS Do not work today. Drink plenty of fluids. Warnings: Further evaluation is necessary. It is very important to follow up with a physician. CONTROLLED SUBSTANCE WARNINGS. GENERAL WARNINGS: Return or contact your physician immediately if your condition worsens or changes unexpectedly, if not improving as expected, or if other problems arise. Prescription Medications: Hydrocodone/APAP 5mg / 325mg: take 1-2 orally every 8 hours as needed for pain. Dispense ten (10). No refill. Ciprofloxacin ophthalmic solution: Instill 1 drop into affected eye every 2 hours while awake for 2 days then every 4 hours while awake for 5 days. Dispense five (5) mL. No refills. Follow-up with: Santos Madrigal MD, Ophthalmology, , [facility], [address] [place] [address]; Genia Xiong MD, Ophthalmology, [facility] [address] - [address] [address] Follow up tomorrow if not better. (Electronically signed by Jorge Deluna DO 08/20/2016 11:34)
--- NOTE | 2016-08-20 11:34 | ED NURSING NOTES ---
Clinical Report - Nurses [facility] [address] [place] [address] 08/19/2016 7:48 Patient: NEGRITA PERALTA TRIAGE Triage time 08:26. --08:26 Savanna Carmona R.N. Acuity: LEVEL 3. Chief Complaint: REDNESS and PAIN TO LEFT EYE. Alert. No acute distress. --08:31 Bettie Frias R.N. Weight: 79.3 kg stated. Height/Length: 64 inches Per Patient. BMI: 30. --08:30 Bettie Frias R.N. Medications Effexor XR Oral. --08:30 Bettie Frias R.N. Allergies Bactrim. CONTRAST DYE. Erythromycin. Penicillin. --08:30 Bettie Frias R.N. Ambien. --08:30 Bettie Frias R.N. Medication/allergy information source: the patient. --08:31 Bettie Frias R.N. History Arrived by private vehicle. Historian: patient. Unaccompanied. This started today. She may have sustained an injury. 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 PAST MEDICAL HX: The patient has had a hysterectomy. SOCIAL HX: Never smoker. Occasional alcohol use. No drug use. FALL RISK ASSESSMENT: Fall risk assessment completed. No fall risk identified. NUTRITIONAL RISK ASSESSMENT: The nutritional risk assessment revealed no deficiencies. FUNCTIONAL ASSESSMENT: Functional assessment: no impairments noted. LEARNING NEEDS ASSESSMENT: The learning needs assessment revealed no barriers. SKIN INTEGRITY ASSESSMENT: Skin integrity risk assessment completed. No skin integrity risk identified. --08:31 Bettie Frias R.N. PROBLEMS: Gastroenteritis. Diverticulitis. Sick Contact. Diarrhea. Chest Pain. Syncope. Hyperlipidemia. Pulmonary Nodule. Immunizations. Stage 3 renal failure. Depression. Tachycardia. Renal cancer. --08:30 Bettie Frias R.N. ADDITIONAL SURGERIES: Hysterectomy. Nephrectomy. Oophorectomy. Rotator Cuff Surgery. --08:30 Bettie Frias R.N. Assessment GENERAL / NEURO / PSYCH: Alert. Oriented X 4. Appears in no acute distress. Patient appears calm and cooperative. RESPIRATORY: Respirations not labored. CVS: Capillary refill less than 2 seconds. GI / : Abdomen soft and nontender. SKIN: Mucous membranes are pink. Skin is warm and dry. --08:31 Bettie Frias R.N. Interventions ID band on patient. To treatment room. --08:31 Bettie Frias R.N. NURSING PROGRESS NOTES 08:26 08/19/16. BP: 149/86. HR: 85. RR: 18. O2 saturation: 100%. Temp: 98.1 F. --08:27 Janae Walker. DISPOSITION / DISCHARGE 08:35. The patient was discharged by the physician. --15:47 Bethany Linares R.N. 08:26 08/19/16. BP: 149/86. HR: 85. RR: 18. O2 saturation: 100%. Temp: 98.1 F. --15:47 Bethany Linares R.N. Locked/Released at 08/19/2016 15:47 by Bethany Linares R.N.
--- NOTE | 2016-08-20 11:34 | ED DISCHARGE INSTRUCTIONS ---
Patient: NEGRITA PERALTA General Instructions [facility] VisitID: [id number] [address] [place] [id number] 60y, F Registration Date/Time: 08/19/2016 Small corneal abrasion to the left eye due to contact lens (resolving). No foreign body or rust ring. Small scleral laceration of the left eye. No prolapse or loss of intraocular contents. INSTRUCTIONS Do not work today. Drink plenty of fluids. Warnings: Further evaluation is necessary. It is very important to follow up with a physician. CONTROLLED SUBSTANCE WARNINGS. GENERAL WARNINGS: Return or contact your physician immediately if your condition worsens or changes unexpectedly, if not improving as expected, or if other problems arise. Prescription Medications: Hydrocodone/APAP 5mg / 325mg: take 1-2 orally every 8 hours as needed for pain. Dispense ten (10). No refill. Ciprofloxacin ophthalmic solution: Instill 1 drop into affected eye every 2 hours while awake for 2 days then every 4 hours while awake for 5 days. Dispense five (5) mL. No refills. Follow-up with: Santos Madrigal MD, Ophthalmology, , [facility], [address] [place] [address]; Genia Xiong MD, Ophthalmology, [facility], [address] [place] [address] - [address] [address] Follow up tomorrow if not better. ADDITIONAL INFORMATION Corneal Abrasion The cornea is the clear part in the front of the eye. This sensitive area is very painful when injured. There may be tearing and your vision may be blurry until healing occurs. You may be sensitive to light. This part of the body heals quickly. You can expect the pain to go away within 24-48 hours. If the abrasion is large or deep, your doctor may apply an eye patch, although this is not always done. An antibiotic ointment or eye drops may also be used to prevent infection. Numbing drops may be used to relieve the pain temporarily so that your eyes can be examined. However, these drops cannot be prescribed for home use because that would slow down the healing process. Also, if you cant feel your eye, there is a chance of accidentally injuring your eye further without knowing it. Home Care: A cold pack (ice in a plastic bag, wrapped in a towel) may be applied over the eye (or eyepatch) for 20 minutes at a time, to reduce pain. You may use acetaminophen (Tylenol) or ibuprofen (Motrin, Advil) to control pain, unless another pain medicine was prescribed. [NOTE: If you have chronic liver or kidney disease or ever had a stomach ulcer or GI bleeding, talk with your doctor before using these medicines.] Rest your eyes and do not read until symptoms are gone. If you use contact lenses, do not wear them until all symptoms are gone. If your vision is affected by the corneal abrasion or if an eyepatch was applied, DO NOT DRIVE a motor vehicle or operate machinery until all symptoms are gone. Otherwise, you would have trouble judging distances with only one eye. If your eyes are sensitive to light, try wearing sunglasses, or stay indoors, until symptoms go away. Follow Up as advised by our staff. Serious abrasions may be referred to an eyeglass assembler (planning engineer). If no patch was used but the pain continues for more than 48 hours, you should have another exam. Return to this facility or contact the referral doctor to arrange this. If your eye was patched and if you were asked to remove the patch yourself, see your doctor or return to this facility if your pain is still present after the patch is removed. If you were given a return appointment for patch removal and re-exam, do not miss this. It could be harmful if the patch remains in place longer than advised. Get Prompt Medical Attention if any of the following occur: Increasing eye pain or pain that does not improve after 24 hours Discharge from the eye Increasing redness of the eye or swelling of the eyelids Your vision gets worse Hydrocodone Bitartrate, Acetaminophen Oral tablet What is this medicine? ACETAMINOPHEN; HYDROCODONE (a set a AMADOU monisha fen; luz marina droe KOE done) is a pain reliever. It is used to treat mild to moderate pain. How should I use this medicine? Take this medicine by mouth. Swallow it with a full glass of water. Follow the directions on the prescription label. If the medicine upsets your stomach, take the medicine with food or milk. Do not take more than you are told to take. Talk to your mva operator regarding the use of this medicine in children. This medicine is not approved for use in children. What side effects may I notice from receiving this medicine? Side effects that you should report to your doctor or health rn care transition as soon as possible: allergic reactions like skin rash, itching or hives, swelling of the face, lips, or tongue breathing problems confusion feeling faint or lightheaded, falls stomach pain yellowing of the eyes or skin Side effects that usually do not require medical attention (report to your doctor or health rn care transition if they continue or are bothersome): nausea, vomiting stomach upset What may interact with this medicine? alcohol antihistamines isoniazid medicines for depression, anxiety, or psychotic disturbances medicines for sleep muscle relaxants naltrexone narcotic medicines (opiates) for pain phenobarbital ritonavir tramadol What if I miss a dose? If you miss a dose, take it as soon as you can. If it is almost time for your next dose, take only that dose. Do not take double or extra doses. Where should I keep my medicine? Keep out of the reach of children. This medicine can be abused. Keep your medicine in a safe place to protect it from theft. Do not share this medicine with anyone. Selling or giving away this medicine is dangerous and against the law. Store at room temperature between 15 and 30 degrees C (59 and 86 degrees F). Protect from light. Keep container tightly closed. Throw away any unused medicine after the expiration date. Discard unused medicine and used packaging carefully. Pets and children can be harmed if they find used or lost packages. What should I tell my health care provider before I take this medicine? They need to know if you have any of these conditions: brain tumor Crohn's disease, inflammatory bowel disease, or ulcerative colitis drink more than 3 alcohol-containing drinks per day drug abuse or addiction head injury heart or circulation problems kidney disease or problems going to the bathroom liver disease lung disease, asthma, or breathing problems an unusual or allergic reaction to acetaminophen, hydrocodone, other opioid analgesics, other medicines, foods, dyes, or preservatives or trying to get breast-feeding What should I watch for while using this medicine? Tell your doctor or health rn care transition if your pain does not go away, if it gets worse, or if you have new or a different type of pain. You may develop tolerance to the medicine. Tolerance means that you will need a higher dose of the medicine for pain relief. Tolerance is normal and is expected if you take the medicine for a long time. Do not suddenly stop taking your medicine because you may develop a severe reaction. Your body becomes used to the medicine. This does NOT mean you are addicted. Addiction is a behavior related to getting and using a drug for a non-medical reason. If you have pain, you have a medical reason to take pain medicine. Your doctor will tell you how much medicine to take. If your doctor wants you to stop the medicine, the dose will be slowly lowered over time to avoid any side effects. You may get drowsy or dizzy when you first start taking the medicine or change doses. Do not drive, use machinery, or do anything that may be dangerous until you know how the medicine affects you. Stand or sit up slowly. There are different types of narcotic medicines (opiates) for pain. If you take more than one type at the same time, you may have more side effects. Give your health care provider a list of all medicines you use. Your doctor will tell you how much medicine to take. Do not take more medicine than directed. Call emergency for help if you have problems breathing. The medicine will cause constipation. Try to have a bowel movement at least every 2 to 3 days. If you do not have a bowel movement for 3 days, call your doctor or health rn care transition. Too much acetaminophen can be very dangerous. Do not take Tylenol (acetaminophen) or medicines that contain acetaminophen with this medicine. Many non-prescription medicines contain acetaminophen. Always read the labels carefully. Ciprofloxacin Hydrochloride Eye drops, solution What is this medicine? CIPROFLOXACIN (sip daren FLOX a sin) is a quinolone antibiotic. It is used to treat bacterial eye infections. How should I use this medicine? This medicine is only for use in the eye. Follow the directions on the prescription label. Wash hands before and after use. Try not to touch the tip of the dropper to anything, even your eye or fingertips.Tilt your head back slightly and pull your lower eyelid down with your index finger to form a pouch. Squeeze the prescribed number of drops into the pouch. Close the eye gently to spread the drops. Your vision may blur for a few minutes. Use your doses at regular intervals. Do not use your medicine more often than directed. Finish the full course that is prescribed even if you think your condition is better. Do not skip doses or stop your medicine early. Talk to your mva operator regarding the use of this medicine in children. Special care may be needed. What side effects may I notice from receiving this medicine? Side effects that you should report to your doctor or health rn care transition as soon as possible: allergic reactions like skin rash, itching or hives, swelling of the face, lips, or tongue blurred vision that does not go away Side effects that usually do not require medical attention (report to your doctor or health rn care transition if they continue or are bothersome): temporary blurred vision tearing or feeling of something in the eye What may interact with this medicine? Interactions are not expected. Do not use any other eye products without telling your doctor or health rn care transition. What if I miss a dose? If you miss a dose, use it as soon as you can. If it is almost time for your next dose, use only that dose. Do not use double or extra doses. Where should I keep my medicine? Keep out of the reach of children. Store at room temperature between 2 and 25 degrees C (36 and 77 degrees F). Protect from light. Throw away any unused medicine after the expiration date. What should I tell my health care provider before I take this medicine? They need to know if you have any of these conditions: contact lens wearer an unusual or allergic reaction to ciprofloxacin, other antibiotics or medicines, foods, dyes, or preservatives or trying to get breast-feeding What should I watch for while using this medicine? Tell your doctor or health rn care transition if your symptoms do not improve in 2 to 3 days or if they get worse. If your eyes are more sensitive to light, wear sunglasses. Do not wear contact lenses while you have any signs or symptoms of an eye infection. Ask your doctor or health rn care transition when you can start wearing your contacts again. Stop using this medicine immediately if you notice signs of an allergic reaction. You have been given the following additional information: Corneal Abrasion Hydrocodone Bitartrate, Acetaminophen Oral tablet Ciprofloxacin Hydrochloride Eye drops, solution Do not work today. (Electronically signed by Jorge Deluna DO 08/20/2016 11:34)
--- NOTE | 2016-08-20 11:34 | ED MAR SUMMARY ---
..... Medication Administration Record [facility] [address] [id number] Patient: NEGRITA PERALTA Visit ID: [id number] 60y, F Weight: 79.3 kg Height/Length: 64 in BMI: 30 ALLERGIES: Ambien, Bactrim, CONTRAST DYE, Erythromycin, Penicillin
--- NOTE | 2016-08-20 11:34 | ED NURSING NOTES ---
Clinical Report - Nurses [facility] [address] [place] [address] 08/19/2016 7:48 Patient: NEGRITA PERALTA TRIAGE Triage time 08:26. --08:26 Savanna Carmona R.N. Acuity: LEVEL 3. Chief Complaint: REDNESS and PAIN TO LEFT EYE. Alert. No acute distress. --08:31 Bettie Frias R.N. Weight: 79.3 kg stated. Height/Length: 64 inches Per Patient. BMI: 30. --08:30 Bettie Frias R.N. Medications Effexor XR Oral. --08:30 Bettie Frias R.N. Allergies Bactrim. CONTRAST DYE. Erythromycin. Penicillin. --08:30 Bettie Frias R.N. Ambien. --08:30 Bettie Frias R.N. Medication/allergy information source: the patient. --08:31 Bettie Frias R.N. History Arrived by private vehicle. Historian: patient. Unaccompanied. This started today. She may have sustained an injury. 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 PAST MEDICAL HX: The patient has had a hysterectomy. SOCIAL HX: Never smoker. Occasional alcohol use. No drug use. FALL RISK ASSESSMENT: Fall risk assessment completed. No fall risk identified. NUTRITIONAL RISK ASSESSMENT: The nutritional risk assessment revealed no deficiencies. FUNCTIONAL ASSESSMENT: Functional assessment: no impairments noted. LEARNING NEEDS ASSESSMENT: The learning needs assessment revealed no barriers. SKIN INTEGRITY ASSESSMENT: Skin integrity risk assessment completed. No skin integrity risk identified. --08:31 Bettie Frias R.N. PROBLEMS: Gastroenteritis. Diverticulitis. Sick Contact. Diarrhea. Chest Pain. Syncope. Hyperlipidemia. Pulmonary Nodule. Immunizations. Stage 3 renal failure. Depression. Tachycardia. Renal cancer. --08:30 Bettie Frias R.N. ADDITIONAL SURGERIES: Hysterectomy. Nephrectomy. Oophorectomy. Rotator Cuff Surgery. --08:30 Bettie Frias R.N. Assessment GENERAL / NEURO / PSYCH: Alert. Oriented X 4. Appears in no acute distress. Patient appears calm and cooperative. RESPIRATORY: Respirations not labored. CVS: Capillary refill less than 2 seconds. GI / : Abdomen soft and nontender. SKIN: Mucous membranes are pink. Skin is warm and dry. --08:31 Bettie Frias R.N. Interventions ID band on patient. To treatment room. --08:31 Bettie Frias R.N. NURSING PROGRESS NOTES 08:26 08/19/16. BP: 149/86. HR: 85. RR: 18. O2 saturation: 100%. Temp: 98.1 F. --08:27 Janae Walker. DISPOSITION / DISCHARGE 08:35. The patient was discharged by the physician. --15:47 Bethany Linares R.N. 08:26 08/19/16. BP: 149/86. HR: 85. RR: 18. O2 saturation: 100%. Temp: 98.1 F. --15:47 Bethany Linares R.N. Locked/Released at 08/19/2016 15:47 by Bethany Linares R.N.
--- NOTE | 2016-08-20 11:34 | ED MED RECONCILIATION SUMMARY ---
Patient: NEGRITA PERALTA Medication Reconciliation Report [facility] VisitID: [id number] [address] [place] [address] 60y, F Registration Date/Time: 08/19/2016 Weight: 79.3 kg Height/Length: 64 in. BMI: 30.0 ALLERGIES: Ambien, Bactrim, CONTRAST DYE, Erythromycin, Penicillin The patient's Home Medications are listed below: THE FOLLOWING MEDICATIONS NEED TO BE RECONCILED: Effexor XR Oral The source(s) of the original Home Medication information: patient The following Medications were given to the patient in the Emergency Department: None. The following Medications were prescribed to the patient: Hydrocodone/APAP 5mg / 325mg: take 1-2 orally every 8 hours as needed for pain. Dispense ten (10). No refill. -- Jorge Deluna DO Ciprofloxacin ophthalmic solution: Instill 1 drop into affected eye every 2 hours while awake for 2 days then every 4 hours while awake for 5 days. Dispense five (5) mL. No refills. -- Jorge Deluna DO
--- NOTE | 2016-08-20 11:34 | ED MAR SUMMARY ---
..... Medication Administration Record [facility] [address], [place] [id number] Patient: NEGRITA PERALTA Visit ID: [id number] 60y, F Weight: 79.3 kg Height/Length: 64 in BMI: 30 ALLERGIES: Ambien, Bactrim, CONTRAST DYE, Erythromycin, Penicillin
--- NOTE | 2016-08-20 11:34 | ED DISCHARGE INSTRUCTIONS ---
Patient: NEGRITA PERALTA General Instructions [facility] VisitID: [id number] [address] [place] [id number] 60y, F Registration Date/Time: 08/19/2016 Small corneal abrasion to the left eye due to contact lens (resolving). No foreign body or rust ring. Small scleral laceration of the left eye. No prolapse or loss of intraocular contents. INSTRUCTIONS Do not work today. Drink plenty of fluids. Warnings: Further evaluation is necessary. It is very important to follow up with a physician. CONTROLLED SUBSTANCE WARNINGS. GENERAL WARNINGS: Return or contact your physician immediately if your condition worsens or changes unexpectedly, if not improving as expected, or if other problems arise. Prescription Medications: Hydrocodone/APAP 5mg / 325mg: take 1-2 orally every 8 hours as needed for pain. Dispense ten (10). No refill. Ciprofloxacin ophthalmic solution: Instill 1 drop into affected eye every 2 hours while awake for 2 days then every 4 hours while awake for 5 days. Dispense five (5) mL. No refills. Follow-up with: Santos Madrigal MD, Ophthalmology, , [facility], [address] [place] [address]; Genia Xiong MD, Ophthalmology, [facility], [address] [place] [address] - [address] [address] Follow up tomorrow if not better. ADDITIONAL INFORMATION Corneal Abrasion The cornea is the clear part in the front of the eye. This sensitive area is very painful when injured. There may be tearing and your vision may be blurry until healing occurs. You may be sensitive to light. This part of the body heals quickly. You can expect the pain to go away within 24-48 hours. If the abrasion is large or deep, your doctor may apply an eye patch, although this is not always done. An antibiotic ointment or eye drops may also be used to prevent infection. Numbing drops may be used to relieve the pain temporarily so that your eyes can be examined. However, these drops cannot be prescribed for home use because that would slow down the healing process. Also, if you cant feel your eye, there is a chance of accidentally injuring your eye further without knowing it. Home Care: A cold pack (ice in a plastic bag, wrapped in a towel) may be applied over the eye (or eyepatch) for 20 minutes at a time, to reduce pain. You may use acetaminophen (Tylenol) or ibuprofen (Motrin, Advil) to control pain, unless another pain medicine was prescribed. [NOTE: If you have chronic liver or kidney disease or ever had a stomach ulcer or GI bleeding, talk with your doctor before using these medicines.] Rest your eyes and do not read until symptoms are gone. If you use contact lenses, do not wear them until all symptoms are gone. If your vision is affected by the corneal abrasion or if an eyepatch was applied, DO NOT DRIVE a motor vehicle or operate machinery until all symptoms are gone. Otherwise, you would have trouble judging distances with only one eye. If your eyes are sensitive to light, try wearing sunglasses, or stay indoors, until symptoms go away. Follow Up as advised by our staff. Serious abrasions may be referred to an hydraulic specialist (referral specialist). If no patch was used but the pain continues for more than 48 hours, you should have another exam. Return to this facility or contact the referral doctor to arrange this. If your eye was patched and if you were asked to remove the patch yourself, see your doctor or return to this facility if your pain is still present after the patch is removed. If you were given a return appointment for patch removal and re-exam, do not miss this. It could be harmful if the patch remains in place longer than advised. Get Prompt Medical Attention if any of the following occur: Increasing eye pain or pain that does not improve after 24 hours Discharge from the eye Increasing redness of the eye or swelling of the eyelids Your vision gets worse Hydrocodone Bitartrate, Acetaminophen Oral tablet What is this medicine? ACETAMINOPHEN; HYDROCODONE (a set a AMADOU monisha fen; luz marina droe KOE done) is a pain reliever. It is used to treat mild to moderate pain. How should I use this medicine? Take this medicine by mouth. Swallow it with a full glass of water. Follow the directions on the prescription label. If the medicine upsets your stomach, take the medicine with food or milk. Do not take more than you are told to take. Talk to your terrazzo worker helper regarding the use of this medicine in children. This medicine is not approved for use in children. What side effects may I notice from receiving this medicine? Side effects that you should report to your doctor or health intensive care anaesthetist as soon as possible: allergic reactions like skin rash, itching or hives, swelling of the face, lips, or tongue breathing problems confusion feeling faint or lightheaded, falls stomach pain yellowing of the eyes or skin Side effects that usually do not require medical attention (report to your doctor or health intensive care anaesthetist if they continue or are bothersome): nausea, vomiting stomach upset What may interact with this medicine? alcohol antihistamines isoniazid medicines for depression, anxiety, or psychotic disturbances medicines for sleep muscle relaxants naltrexone narcotic medicines (opiates) for pain phenobarbital ritonavir tramadol What if I miss a dose? If you miss a dose, take it as soon as you can. If it is almost time for your next dose, take only that dose. Do not take double or extra doses. Where should I keep my medicine? Keep out of the reach of children. This medicine can be abused. Keep your medicine in a safe place to protect it from theft. Do not share this medicine with anyone. Selling or giving away this medicine is dangerous and against the law. Store at room temperature between 15 and 30 degrees C (59 and 86 degrees F). Protect from light. Keep container tightly closed. Throw away any unused medicine after the expiration date. Discard unused medicine and used packaging carefully. Pets and children can be harmed if they find used or lost packages. What should I tell my health care provider before I take this medicine? They need to know if you have any of these conditions: brain tumor Crohn's disease, inflammatory bowel disease, or ulcerative colitis drink more than 3 alcohol-containing drinks per day drug abuse or addiction head injury heart or circulation problems kidney disease or problems going to the bathroom liver disease lung disease, asthma, or breathing problems an unusual or allergic reaction to acetaminophen, hydrocodone, other opioid analgesics, other medicines, foods, dyes, or preservatives or trying to get breast-feeding What should I watch for while using this medicine? Tell your doctor or health intensive care anaesthetist if your pain does not go away, if it gets worse, or if you have new or a different type of pain. You may develop tolerance to the medicine. Tolerance means that you will need a higher dose of the medicine for pain relief. Tolerance is normal and is expected if you take the medicine for a long time. Do not suddenly stop taking your medicine because you may develop a severe reaction. Your body becomes used to the medicine. This does NOT mean you are addicted. Addiction is a behavior related to getting and using a drug for a non-medical reason. If you have pain, you have a medical reason to take pain medicine. Your doctor will tell you how much medicine to take. If your doctor wants you to stop the medicine, the dose will be slowly lowered over time to avoid any side effects. You may get drowsy or dizzy when you first start taking the medicine or change doses. Do not drive, use machinery, or do anything that may be dangerous until you know how the medicine affects you. Stand or sit up slowly. There are different types of narcotic medicines (opiates) for pain. If you take more than one type at the same time, you may have more side effects. Give your health care provider a list of all medicines you use. Your doctor will tell you how much medicine to take. Do not take more medicine than directed. Call emergency for help if you have problems breathing. The medicine will cause constipation. Try to have a bowel movement at least every 2 to 3 days. If you do not have a bowel movement for 3 days, call your doctor or health intensive care anaesthetist. Too much acetaminophen can be very dangerous. Do not take Tylenol (acetaminophen) or medicines that contain acetaminophen with this medicine. Many non-prescription medicines contain acetaminophen. Always read the labels carefully. Ciprofloxacin Hydrochloride Eye drops, solution What is this medicine? CIPROFLOXACIN (sip daren FLOX a sin) is a quinolone antibiotic. It is used to treat bacterial eye infections. How should I use this medicine? This medicine is only for use in the eye. Follow the directions on the prescription label. Wash hands before and after use. Try not to touch the tip of the dropper to anything, even your eye or fingertips.Tilt your head back slightly and pull your lower eyelid down with your index finger to form a pouch. Squeeze the prescribed number of drops into the pouch. Close the eye gently to spread the drops. Your vision may blur for a few minutes. Use your doses at regular intervals. Do not use your medicine more often than directed. Finish the full course that is prescribed even if you think your condition is better. Do not skip doses or stop your medicine early. Talk to your terrazzo worker helper regarding the use of this medicine in children. Special care may be needed. What side effects may I notice from receiving this medicine? Side effects that you should report to your doctor or health intensive care anaesthetist as soon as possible: allergic reactions like skin rash, itching or hives, swelling of the face, lips, or tongue blurred vision that does not go away Side effects that usually do not require medical attention (report to your doctor or health intensive care anaesthetist if they continue or are bothersome): temporary blurred vision tearing or feeling of something in the eye What may interact with this medicine? Interactions are not expected. Do not use any other eye products without telling your doctor or health intensive care anaesthetist. What if I miss a dose? If you miss a dose, use it as soon as you can. If it is almost time for your next dose, use only that dose. Do not use double or extra doses. Where should I keep my medicine? Keep out of the reach of children. Store at room temperature between 2 and 25 degrees C (36 and 77 degrees F). Protect from light. Throw away any unused medicine after the expiration date. What should I tell my health care provider before I take this medicine? They need to know if you have any of these conditions: contact lens wearer an unusual or allergic reaction to ciprofloxacin, other antibiotics or medicines, foods, dyes, or preservatives or trying to get breast-feeding What should I watch for while using this medicine? Tell your doctor or health intensive care anaesthetist if your symptoms do not improve in 2 to 3 days or if they get worse. If your eyes are more sensitive to light, wear sunglasses. Do not wear contact lenses while you have any signs or symptoms of an eye infection. Ask your doctor or health intensive care anaesthetist when you can start wearing your contacts again. Stop using this medicine immediately if you notice signs of an allergic reaction. You have been given the following additional information: Corneal Abrasion Hydrocodone Bitartrate, Acetaminophen Oral tablet Ciprofloxacin Hydrochloride Eye drops, solution Do not work today. (Electronically signed by Jorge Deluna DO 08/20/2016 11:34)
--- NOTE | 2016-08-20 11:34 | ED MED RECONCILIATION SUMMARY ---
Patient: NEGRITA PERALTA Medication Reconciliation Report [facility] VisitID: [id number] [address] [place] [address] 60y, F Registration Date/Time: 08/19/2016 Weight: 79.3 kg Height/Length: 64 in. BMI: 30.0 ALLERGIES: Ambien, Bactrim, CONTRAST DYE, Erythromycin, Penicillin The patient's Home Medications are listed below: THE FOLLOWING MEDICATIONS NEED TO BE RECONCILED: Effexor XR Oral The source(s) of the original Home Medication information: patient The following Medications were given to the patient in the Emergency Department: None. The following Medications were prescribed to the patient: Hydrocodone/APAP 5mg / 325mg: take 1-2 orally every 8 hours as needed for pain. Dispense ten (10). No refill. -- Jorge Deluna DO Ciprofloxacin ophthalmic solution: Instill 1 drop into affected eye every 2 hours while awake for 2 days then every 4 hours while awake for 5 days. Dispense five (5) mL. No refills. -- Jorge Deluna DO
== END 2016-08-19 08:35 | disposition home or self-care (01) ==
LOC: ED SRH 07:47
DX: S05.32XA Ocular laceration without prolapse or loss of intraocular tissue, left eye, initial encounter (principal); H18.822 Corneal disorder due to contact lens, left eye; W22.8XXA Striking against or struck by other objects, initial encounter; Y93.9 Activity, unspecified; Y99.9 Unspecified external cause status; Y92.009 Unspecified place in unspecified non-institutional (private) residence as the place of occurrence of the external cause; N18.3 Chronic kidney disease, stage 3 (moderate); E78.5 Hyperlipidemia, unspecified; Z79.899 Other long term (current) drug therapy; Z88.8 Allergy status to other drugs, medicaments and biological substances